=== PATIENT | female | born 1980 | race Caucasian/White ===

== ENCOUNTER 2018-03-18 23:16 | Emergency (ER) | payer OTHER, SELFPAY | END 2018-03-19 00:52 | disposition home or self-care (01) | LOC: ERS 23:16 | DX: R51 Headache (principal); F41.9 Anxiety disorder, unspecified | CPT/HCPCS: 99283 ==

== ENCOUNTER 2022-06-26 16:03 | Emergency (ER) | payer SELFPAY | END 2022-06-26 17:32 | disposition home or self-care (01) | LOC: ERS 16:03 | DX: J02.9 Acute pharyngitis, unspecified (principal); E78.00 Pure hypercholesterolemia, unspecified; I10 Essential (primary) hypertension | CPT/HCPCS: 87081; 87430; 87804; 99283 ==